=== PATIENT | female | born 1995 | race Caucasian/White ===

== ENCOUNTER 2018-12-15 19:31 | Emergency (ER) | payer MEDICAID, OTHER ==
[~2018-12-15] VITALS: Ht 157.5 cm; Wt 61.1 kg
[~2018-12-15 19:31] MED LIST: ACET1TAB40 PO; FAMO-96 PO
[2018-12-15 19:34] VITALS: Ht 157.5 cm; Wt 61.1 kg
[2018-12-15] MEDS ORDERED: FAMOTIDINE 20 MG INJ IV STA (19:47)
[2018-12-15] MEDS ORDERED: LIDOCAINE/MYLANTA 40 ML BTL PO STA (19:47)
[2018-12-15] MEDS ORDERED: ONDANSETRON 4 MG INJ IV STA (19:47)
[2018-12-15] MEDS ORDERED: morphine 2 MG INJ IV STA (19:47)
--- NOTE | 2018-12-15 21:16 | ERD ---
ER Documentation Chief Complaint Chief Complaint EPIGASTRIC X3DAYS WITH NAUSEA; NO MED HX HPI 23-year-old female presents with epigastric pain for last 3 days states radiates to the chest. Is burning. She denies right upper quadrant pain, fevers, vomiting. She may have a history of heartburn. Denies previous GI conditions. ROS All systems reviewed and are negative except as per history of present illness. Medications Home Meds Active Scripts Acetaminophen with Codeine (Acetaminophen-Cod #3 Tablet) 1 Each Tablet, 1 TAB PO Q6H PRN for PAIN, #10 TAB Prov:RIGOBERTO BELTRAN MD 12/15/18 Famotidine* (Pepcid*) 20 Mg Tablet, 20 MG PO BID for 10 Days, #20 TAB Prov:RIGOBERTO BELTRAN MD 12/15/18 Allergies Allergies: Coded Allergies: No Known Allergy (Unverified , 12/15/18) PMhx/Soc Medical and Surgical Hx: pt denies Medical Hx, pt denies Surgical Hx Hx Alcohol Use: No Hx Substance Use: No Hx Tobacco Use: No Smoking Status: Never smoker FmHx Family History: No diabetes, No coronary disease, No other Physical Exam Vitals Vital Signs Date Temp Pulse Resp B/P (MAP) Pulse Ox O2 O2 Flow FiO2 Time Delivery Rate 12/15/18 97.5 80 19 135/84 98 19:34 (101) Physical Exam Const: No acute distress Head: Atraumatic Eyes: Normal Conjunctiva ENT: Normal External Ears, Nose and Mouth. Neck: Full range of motion. No meningismus. Resp: Clear to auscultation bilaterally Cardio: Regular rate and rhythm, no murmurs Abd: Soft, minimal tenderness in the epigastric area. No Jauregui sign. No rebound. No tenderness McBurney's point. Non distended. Normal bowel sounds Skin: No petechiae or rashes Back: No midline or flank tenderness Ext: No cyanosis, or edema Neur: Awake and alert Psych: Normal Mood and Affect Result Diagram: 12/15/18200912/15/182009 Results 24 hrs Laboratory Tests Test 12/15/18 20:03 12/15/18 20:10 POC Beta HCG, Qualitative NEGATIVE White Blood Count 11.9 10^3/ul Red Blood Count 4.62 10^6/ul Hemoglobin 13.4 g/dl Hematocrit 41.6 % Mean Corpuscular Volume 90.0 fl Mean Corpuscular Hemoglobin 29.0 pg Mean Corpuscular Hemoglobin Concent 32.2 g/dl Red Cell Distribution Width 13.7 % Platelet Count 401 10^3/UL Mean Platelet Volume 9.9 fl Immature Granulocytes % 0.500 % Neutrophils % 73.2 % Lymphocytes % 18.1 % Monocytes % 7.1 % Eosinophils % 0.7 % Basophils % 0.4 % Nucleated Red Blood Cells % 0.0 /100WBC Immature Granulocytes # 0.060 10^3/ul Neutrophils # 8.7 10^3/ul Lymphocytes # 2.2 10^3/ul Monocytes # 0.8 10^3/ul Eosinophils # 0.1 10^3/ul Basophils # 0.1 10^3/ul Nucleated Red Blood Cells # 0.0 10^3/ul Urine Color YELLOW Urine Clarity CLEAR Urine pH 5.0 Urine Specific Willis 1.026 Urine Ketones TRACE mg/dL Urine Nitrite NEGATIVE mg/dL Urine Bilirubin NEGATIVE mg/dL Urine Urobilinogen NEGATIVE mg/dL Urine Leukocyte Esterase NEGATIVE Ernie/ul Urine Microscopic RBC 1 /HPF Urine Microscopic WBC 1 /HPF Urine Mucus FEW /HPF Urine Hemoglobin 2+ mg/dL Urine Glucose NEGATIVE mg/dL Urine Total Protein NEGATIVE mg/dl Sodium Level 141 mmol/L Potassium Level 3.5 mmol/L Chloride Level 102 mmol/L Carbon Dioxide Level 27 mmol/L Anion Gap 12 Blood Urea Nitrogen 10 mg/dl Creatinine 0.58 mg/dl Est Glomerular Filtrat Rate mL/min > 60 mL/min Glucose Level 104 mg/dl Calcium Level 10.3 mg/dl Total Bilirubin 0.5 mg/dl Direct Bilirubin 0.00 mg/dl Indirect Bilirubin 0.5 mg/dl Aspartate Amino Transf (AST/SGOT) 247 IU/L Alanine Aminotransferase (ALT/SGPT) 275 IU/L Alkaline Phosphatase 191 IU/L Total Protein 8.8 g/dl Albumin 4.9 g/dl Globulin 3.90 g/dl Albumin/Globulin Ratio 1.25 Lipase 144 U/L Current Medications Medications Dose Sig/Magali Start Time Status Last (Trade) Ordered Route PRN Stop Time Admin Dose Reason Admin Morphine 2 mg ONCE STAT 12/15/18 DC 12/15/18 Sulfate IV 19:47 12/15/18 20:05 (morphine) 19:50 Ondansetron 4 mg ONCE STAT 12/15/18 DC 12/15/18 HCl (Zofran IV 19:47 12/15/18 20:05 Inj) 19:50 Famotidine 20 mg ONCE STAT 12/15/18 DC 12/15/18 (Pepcid Iv) IV 19:47 12/15/18 20:05 19:50 40 ml ONCE STAT 12/15/18 DC 12/15/18 Miscellaneous PO 19:47 12/15/18 20:05 Medication 19:50 (Gi Cocktail (2)) Procedures/MDM EKG: Rate/Rhythm: Normal Sinus Rhythm. Rate equals 77 QRS, ST, T-waves: No changes consistent w/ acute ischemia Impression: No evidence of ischemia or arrhythmia. Impression-normal EKG Patient presents with epigastric burning pain. IV was obtained. Patient was given morphine 2 mg IV, Zofran 4 mg IV and Pepcid 20 mg IV. Right upper quadr ant ultrasound shows gallstones without findings of cholecystitis. She does have a dilated common bile duct with no visualized choledocholithiasis. Patient has transaminitis but no elevation of bilirubin. She has minimal leukocytosis. Patient had a benign abdomen and symptoms resolved after observation treatment. Urine shows no acute abnormalities. hCG negative. Resents with 3-day history of epigastric burning pain, most likely GERD or gastritis. She does have gallstones and a dilated common bile duct with no other signs or symptoms to suggest cholecystitis, choledocholithiasis. She will be discharged home with Pepcid, Tylenol 3, instructions for bland diet, return precautions for fevers, vomiting, worsening pain, new worsening symptoms otherwise with primary care doctor this week. The patient was stable with no new complaints during the ER course. Clinically, there is no current evidence to suggest meningitis, sepsis, acute abdomen, pneumonia, stroke, acute coronary syndrome, pulmonary embolism, aortic dissection or any other emergent condition appearing to require further evaluation or hospitalization. Patient counseled regarding my diagnostic impression and care plan. Prior to discharge all questions answered. Pt agrees with treatment plan and understands strict return precautions. Pt is instructed to follow up with primary care provider within 24- 48 hours. Precautionary instructions provided including instructions to return to the ER if not improving or for any worsening or changing symptoms or concerns. Disclaimer: Inadvertent spelling and grammatical errors are likely due to EHR/dictation software use and do not reflect on the overall quality of patient care. Also, please note that the electronic time recorded on this note does not necessarily reflect the actual time of the patient encounter. Departure Diagnosis: Primary Impression: Epigastric pain Condition: Stable Patient Instructions: Gerd (Adult), Epigastric Pain (Uncertain Cause) Referrals: NO PRIMARY,CARE PHYSICIAN (PCP) [facility]) Usted se germain hecho un examen mdico de control que le indica que no est en cadence condicin que requiera tratamiento urgente en el Departamento de Emergencia. Un estudio ms profundo y el tratamiento de dubon condicin pueden esperar sin ningn riesgo hasta que usted sea atendida/o en el consultorio de udbon mdico o cadence cl randa. Es responsabilidad suya arreglar cadence delia para el seguimiento del charles. MANEJO DE CONDICIONES NO URGENTES EN EL FUTURO 1) Si usted tiene un mdico de atencin primaria: Usted debera llamar a dubon mdico de atencin primaria antes de venir al departamento de emergencia. Despus de las horas de consultorio, dubon doctor o dubon asociado/a est disponible por telfono. El mdico o enfermero de felicia en el servicio telefnico puede asesorarle por wiliam medio para atender el problema, o charles contrario se puede programar cadence delia. 2) Si usted no tiene un mdico de atencin primaria: Llame al mdico o clnica de referencia que aparece abajo ke las horas de consultorio para hacer cadence delia para que le vean. CLINICAS: [facility] 659 [phone] [address] [facility] [phone] [facility] [phone] [facility] [phone] [facility] 901 [phone] [facility] [phone] [address] Additional Instructions: danae piedras en vesicula, grayson creo tiene gastritis. Cheque otro vez con dubon doctor primario en el proximo moyer or regresa para mas o nueva simptomas- fie mehreen, vomit, mas dolor. RIGOBERTO BELTRAN MD Dec 15, 2018 21:16
[2018-12-15 21:56] VITALS: BP 122/77; PULSE 68; RESP 16
== END 2018-12-15 21:57 | disposition home or self-care (01) ==
LOC: FTE 19:31
DX: R10.13 Epigastric pain (principal); R11.0 Nausea
CPT/HCPCS: 36415; 76705; 80053; 81001; 81025; 83690; 85025; 93005; 96374; 96375; J2270; J2405; Z7502; Z7610